=== PATIENT | female | born 1970 | race Hispanic/Latino ===

== ENCOUNTER 2019-09-28 15:26 | Emergency (ER) | payer SELFPAY ==
[2019-09-28] MEDS ORDERED: LIDOCAINE 1% MPF 5 ML VIAL ONE (17:42)
[2019-09-28] MEDS ORDERED: MORPHINE 4 MG/ML SYR ONE (17:43)
[2019-09-28] MEDS ORDERED: ONDANSETRON 4 MG/2 ML VIAL ONE (17:43)
[2019-09-28] MEDS ORDERED: NA CHLORIDE 0.9% 1,000 ML ONE (17:43)
[2019-09-28 18:03] LABS: Absolute Lymphocytes (CBC) 2.6 K/uL (0.7-4.9); Basophils % 0.7 % (0-1.3); Hematocrit 39.6 % (36.0-45.0); Lymphocytes % 27.9 % (15.3-44.8); MPV 9.2 fL (7.6-11.3); RBC Red Blood Cell Count 4.67 M/uL (3.86-4.86)
[2019-09-28 18:09] LABS: BUN Blood Urea Nitrogen 12 mg/dL (7-18); Bicarbonate 24 mmol/L (21-32); Glucose Level 350 mg/dL (74-106); Potassium 3.8 mmol/L (3.5-5.1); Sodium Level 135 mmol/L (136-145)
--- NOTE | 2019-09-28 19:18 | EDPHYS ---
Physician Documentation [facility] Name: Azra Scott Age: 48 yrs Sex: Female : 1970 Arrival Date: 09/28/2019 Time: 15:30 Bed 17 Private MD: ED Physician Colton Medina HPI: 09/27 17:24 This 48 yrs old Female presents to ER via Ambulatory with complaints of Boil. jmm 17:24 The patient presents with an abscess of the abdomen. Onset: The symptoms/episode jmm began/occurred gradually, 4 day(s) ago. Possible cause(s): unknown. Associated signs and symptoms: Pertinent positives: discharge, drainage, erythema, swelling. Modifying factors: the symptoms are alleviated by nothing, the symptoms are aggravated by nothing. Patient states symptoms began this past Sunday. Denies any chonic medical conditions. . [employer] SCOUT: 16:06 LMP 09/27/2019 jl7 Historical: - Allergies: 16:06 No Known Allergies; jl7 - Home Meds: 16:06 None [Active]; jl7 - PMHx: 16:06 None; jl7 - PSHx: 16:06 ; jl7 - Immunization history:: Adult Immunizations not up to date. - Social history:: Smoking status: Patient denies any tobacco usage or history of. ROS: 17:24 Constitutional: Negative for fever, chills, and weight loss, Cardiovascular: Negative jmm for chest pain, palpitations, and edema, Respiratory: Negative for shortness of breath, cough, wheezing, and pleuritic chest pain. 17:24 Skin: Positive for abscess. 17:24 All other systems are negative. Exam: 17:24 Constitutional: This is a well developed, well nourished patient who is awake, alert, jmm and in no acute distress. Head/Face: atraumatic. Eyes: EOMI, no conjunctival erythema appreciated ENT: Moist Mucus Membranes Neck: Trachea midline, Supple Chest/axilla: Normal chest wall appearance and motion. Cardiovascular: Regular rate and rhythm. No edema appreciated Respiratory: Normal respirations, no respiratory distress appreciated 17:24 Back: Normal ROM Skin: General appearance color normal MS/ Extremity: Moves all extremities, no obvious deformities appreciated, no edema noted to the lower extremities Neuro: Awake and alert, normal gait Psych: Behavior is normal, Mood is normal, Patient is cooperative and pleasant 17:24 Abdomen/GI: abscess with drainage and induration noted to the lower abdomen. Vital Signs: 15:58 BP 213 / 94; Pulse 84; Resp 17 S; Temp 98.1(O); Pulse Ox 99% on R/A; Weight 97.07 kg jl7 (R); Height 5 ft. 4 in. (162.56 cm) (R); Pain 5/10; 17:10 BP 192 / 79; Pulse 80; Resp 16 S; Pulse Ox 100% on R/A; Pain 5/10; ca1 18:06 BP 165 / 69; Pulse 71; Resp 15 S; Pulse Ox 99% ; ca1 18:51 BP 185 / 82; Pulse 72; Resp 16 S; Pulse Ox 100% on R/A; ca1 19:40 BP 154 / 78; Pulse 79; Resp 16; Temp 98.2; Pulse Ox 97% on R/A; Pain 0/10; mt2 15:58 Body Mass Index 36.73 (97.07 kg, 162.56 cm) [facility] Procedures: 19:14 I \T\ D: Incision and drainage was performed for an abscess of the abdomen Prepped with [facility] Betadine, Anesthetized with 5 ml's 1% Lidocaine. Incised with #11 blade. Drained moderate amount purulent fluid. Packed with iodoform gauze, Dressing: sterile 4x4 gauze, the patient tolerated the procedure well. MDM: 16:59 Patient medically screened. [facility] 19:15 Data reviewed: vital signs, nurses notes. Counseling: I had a detailed discussion with richard the patient and/or guardian regarding: the historical points, exam findings, and any diagnostic results supporting the discharge/admit diagnosis, lab results, the need for outpatient follow up, to return to the emergency department if symptoms worsen or persist or if there are any questions or concerns that arise at home. ED course: Patient is alert and non toxic in appearance in the ED. I discussed with the patient her bgl. Patient is most likely type II DM. Patient advised to establish herself with a pcp for further evaluation. Patient is otherwise given strict return precautions. Patient understood and agrees with the plan of care. . 09/27 17:19 Order name: CBC with Diff; Complete Time: 18:10 [facility] 09/27 17:19 Order name: BMP; Complete Time: 18:10 [facility] 09/27 17:19 Order name: Procalcitonin; Complete Time: 18:24 [facility] 09/27 17:19 Order name: Lactate; Complete Time: 18:21 [facility] 09/27 17:19 Order name: Saline Lock; Complete Time: 17:51 jm Administered Medications: 17:45 Drug: NS 0.9% 1000 ml Route: IV; Rate: 1 bolus; Site: left hand; jl7 18:55 Follow up: Response: No adverse reaction; IV Status: Completed infusion; IV Intake: ca1 1000ml 17:46 Drug: Zofran (Ondansetron) 4 mg Route: IVP; Site: left hand; jl7 18:55 Follow up: Response: No adverse reaction; Nausea is decreased ca1 17:48 Drug: morphine 4 mg Route: IVP; Site: left hand; jl7 18:55 Follow up: Response: No adverse reaction; Pain is decreased; RASS: Alert and Calm (0) ca1 19:06 Drug: Lidocaine (1 %) 10 ml {Note: ROMAINE Sanchez.} Volume: 20 ml; Route: Infiltration; ca1 Disposition: 09/28 12:03 Co-signature as Attending Physician, Colton Medina MD I agree with the assessment and tucker plan of care. Disposition: 09/28/19 19:17 Discharged to Home. Impression: Cutaneous abscess of abdominal wall, Hyperglycemia, unspecified, Elevated Blood Pressure. - Condition is Stable. - Discharge Instructions: Skin Abscess, Hyperglycemia, Hypertension, Incision and Drainage, Care After. - Prescriptions for Tylenol- Codeine #3 300-30 mg Oral Tablet - take 1 tablet by ORAL route every 6 hours As needed; 20 tablet. Doxycycline Hyclate 100 mg Oral Tablet - take 1 tablet by ORAL route every 12 hours; 20 tablet. Metformin 500 mg Oral Tablet - take 1 tablet by ORAL route once daily for 7 days Then take 1 tablet with morning meals AND evening meals; 21 tablet. Bactrim DS 800- 160 mg Oral Tablet - take 1 tablet by ORAL route every 12 hours for 10 days; 20 tablet. hydrochlorothiazide 12.5 mg Oral capsule - take 1 capsule by ORAL route once daily; 20 capsule. - Medication Reconciliation Form, Thank You Letter, Antibiotic Education, Prescription Opioid Use form. - Follow up: Private Physician; When: 2 - 3 days; Reason: Recheck today's complaints, Continuance of care, Re-evaluation by your physician. Signatures: Dispatcher [employer] EDColton Muñoz MD MD cha Mickail, Joel, PA PA [facility] Erickson Turner, RN RN jl7 Bia Goyal RN RN ca1 Mary Alice Alvarez RN RN mt2 Corrections: (The following items were deleted from the chart) 09/27 19:18 19:17 09/28/2019 19:17 Discharged to Home. Impression: Cutaneous abscess of abdominal jmm wall. Condition is Stable. Forms are Medication Reconciliation Form, Thank You Letter, Antibiotic Education, Prescription Opioid Use. Follow up: Private Physician; When: 2 - 3 days; Reason: Recheck today's complaints, Continuance of care, Re-evaluation by your physician. [facility] 19:46 19:18 09/28/2019 19:17 Discharged to Home. Impression: Cutaneous abscess of abdominal mt2 wall; Hyperglycemia, unspecified; Elevated Blood Pressure. Condition is Stable. Forms are Medication Reconciliation Form, Thank You Letter, Antibiotic Education, Prescription Opioid Use. Follow up: Private Physician; When: 2 - 3 days; Reason: Recheck today's complaints, Continuance of care, Re-evaluation by your physician. levar
--- NOTE | 2019-09-28 19:18 | ER ---
Nurse's Notes [facility] Name: Azra Scott Age: 48 yrs Sex: Female : 1970 Arrival Date: 09/28/2019 Time: 15:30 Bed 17 Private MD: Diagnosis: Cutaneous abscess of abdominal wall;Hyperglycemia, unspecified;Elevated Blood Pressure Presentation: 09/27 15:58 Chief complaint: Patient's son or daughter states: "We think she got bit by a spider or jl7 something on Sunday and now it's just gotten way bigger." Reports abscess to lower abdomen. Coronavirus screen: Client denies travel out of the [place] in the last 14 days. At this time, the client does not indicate any symptoms associated with coronavirus-19. Ebola Screen: No symptoms or risks identified at this time. Initial Sepsis Screen: Does the patient meet any 2 criteria? No. Patient's initial sepsis screen is negative. Does the patient have a suspected source of infection? No. Patient's initial sepsis screen is negative. Risk Assessment: Do you want to hurt yourself or someone else? Patient reports no desire to harm self or others. Onset of symptoms was September 17, 2019. Care prior to arrival: None. Transition of care: patient was not received from another setting of care. 15:58 Method Of Arrival: Ambulatory [facility] 15:58 Acuity: SHELL 3 jl7 Triage Assessment: 16:06 General: Appears in no apparent distress. uncomfortable, Behavior is calm, cooperative, jl7 appropriate for age. Pain: Complains of pain in lower abdomen Pain currently is 5 out of 10 on a pain scale. Neuro: Level of Consciousness is awake, alert, obeys commands, Oriented to person, place, time, situation. Cardiovascular: Patient's skin is warm and dry. Respiratory: Airway is patent Respiratory effort is even, unlabored, Respiratory pattern is regular, symmetrical. Derm: Skin is pink, warm \\T\\ dry. Abscess located on right lower quadrant has purulent drainage, is red, is raised. [employer]: 16:06 LMP 09/27/2019 jl7 Historical: - Allergies: 16:06 No Known Allergies; jl7 - Home Meds: 16:06 None [Active]; jl7 - PMHx: 16:06 None; jl7 - PSHx: 16:06 ; jl7 - Immunization history:: Adult Immunizations not up to date. - Social history:: Smoking status: Patient denies any tobacco usage or history of. Screenin:13 Abuse screen: Denies threats or abuse. Denies injuries from another. Nutritional jl7 screening: No deficits noted. Tuberculosis screening: No symptoms or risk factors identified. Fall Risk None identified. Assessment: 17:18 General: Appears in no apparent distress. comfortable, Behavior is calm, cooperative, ca1 appropriate for age. Pain: Denies pain. Neuro: Level of Consciousness is awake, alert, obeys commands, Oriented to person, place, time, situation. Derm: Skin is intact, is healthy with good turgor, Skin is pink, warm \\T\\ dry. Abscess located on right lower quadrant is golf ball sized, has purulent drainage, has foul odor, is hot to touch, is red, is raised, was lanced by patient prior to arrival. Musculoskeletal: Circulation, motion, and sensation intact. Capillary refill < 3 seconds. 18:06 Reassessment: Patient appears in no apparent distress at this time. No changes from ca1 previously documented assessment. Patient and/or family updated on plan of care and expected duration. Pain level reassessed. Patient is alert, oriented x 3, equal unlabored respirations, skin warm/dry/pink. 18:51 Reassessment: Patient appears in no apparent distress at this time. Patient and/or ca1 family updated on plan of care and expected duration. Pain level reassessed. Patient is alert, oriented x 3, equal unlabored respirations, skin warm/dry/pink. 19:39 Reassessment: Patient and/or family updated on plan of care and expected duration. Pain mt2 level reassessed. Patient is alert, oriented x 3, equal unlabored respirations, skin warm/dry/pink. Patient denies pain at this time. General: Appears in no apparent distress. comfortable, Behavior is calm, cooperative. Pain: Denies pain. Vital Signs: 15:58 BP 213 / 94; Pulse 84; Resp 17 S; Temp 98.1(O); Pulse Ox 99% on R/A; Weight 97.07 kg jl7 (R); Height 5 ft. 4 in. (162.56 cm) (R); Pain 5/10; 17:10 BP 192 / 79; Pulse 80; Resp 16 S; Pulse Ox 100% on R/A; Pain 5/10; ca1 18:06 BP 165 / 69; Pulse 71; Resp 15 S; Pulse Ox 99% ; ca1 18:51 BP 185 / 82; Pulse 72; Resp 16 S; Pulse Ox 100% on R/A; ca1 19:40 BP 154 / 78; Pulse 79; Resp 16; Temp 98.2; Pulse Ox 97% on R/A; Pain 0/10; mt2 15:58 Body Mass Index 36.73 (97.07 kg, 162.56 cm) jl7 ED Course: 15:30 Patient arrived in ED. ag5 16:05 Triage completed. jl7 16:06 Arm band placed on right wrist. jl7 16:08 Patient placed in waiting room, Patient notified of wait time. [facility] 16:56 Daniel Meza PA is PHCP. [facility] 16:56 Colton Medina MD is Attending Physician. [facility] 17:10 Bia Goyal RN is Primary Nurse. ca1 17:13 Patient has correct armband on for positive identification. Placed in gown. Bed in low jl7 position. Call light in reach. Side rails up X 1. Pulse ox on. NIBP on. Warm blanket given. 17:35 Missed attempt(s): 22 gauge in right hand. Bleeding controlled, band aid applied, ca1 catheter tip intact. 17:51 Initial lab(s) drawn, by ak, sent to lab. Inserted saline lock: 20 gauge in left hand, jl7 using aseptic technique. Blood collected. 19:07 Assist provider with I \\T\\ D: of an abscess on right LQ abdomen Set up I\\T\\D tray. ca 1 Performed by Daniel GAVIN Wound packed. 4X4s, Dressing with 4X4s, Patient tolerated well. 19:40 IV discontinued, intact, bleeding controlled, No redness/swelling at site. Pressure mt2 dressing applied. Administered Medications: 17:45 Drug: NS 0.9% 1000 ml Route: IV; Rate: 1 bolus; Site: left hand; [facility] 18:55 Follow up: Response: No adverse reaction; IV Status: Completed infusion; IV Intake: ca1 1000ml 17:46 Drug: Zofran (Ondansetron) 4 mg Route: IVP; Site: left hand; jl7 18:55 Follow up: Response: No adverse reaction; Nausea is decreased ca1 17:48 Drug: morphine 4 mg Route: IVP; Site: left hand; jl7 18:55 Follow up: Response: No adverse reaction; Pain is decreased; RASS: Alert and Calm (0) ca1 19:06 Drug: Lidocaine (1 %) 10 ml {Note: ROMAINE Sanchez.} Volume: 20 ml; Route: Infiltration; ca1 Intake: 18:55 IV: 1000ml; Total: 1000ml. ca1 Outcome: 19:17 Discharge ordered by . richard 19:40 Discharged to home ambulatory. mt2 19:40 Condition: good 19:40 Discharge instructions given to patient, Instructed on discharge instructions, follow up and referral plans. medication usage, wound care, Demonstrated understanding of instructions, follow-up care, medications, wound care, Prescriptions given X 4. 19:46 Patient left the ED. mt2 Signatures: Daniel Meza PA PA jmm Leal, Jahala, RN RN jl7 Bia Goyal RN RN [facility] Blaine Hart 5 Mary Alice Alvarez RN RN mt2 Corrections: (The following items were deleted from the chart) 18:06 17:18 Derm: Skin is intact, is healthy with good turgor, Skin is pink, warm \\T\\ dry. ca1 Abscess located on right lower quadrant is quarter sized, has purulent drainage, has foul odor, is hot to touch, is red, is raised, was lanced by patient prior to arrival, ca1
== END 2019-09-28 19:46 | disposition home or self-care (01) ==
LOC: ER 15:26
PROC: 0J980ZZ Drainage of Abdomen Subcutaneous Tissue and Fascia, Open Approach (ICD-10-PCS; principal; 2019-09-28)
DX: L02.211 Cutaneous abscess of abdominal wall (principal); R73.9 Hyperglycemia, unspecified; I10 Essential (primary) hypertension
CPT/HCPCS: 36415; 80048; 83605; 84145; 85025; 96361; 96374; 96375; 99284; J2405; J7030

== ENCOUNTER 2020-09-30 13:19 | Inpatient (IN) | payer OTHER, SELFPAY ==
--- OUTSIDE RECORDS SUMMARY | 2020-09-30 13:22 | XMS REPORT | Continuity of Care Document ---
:1970 Author Organization [facility] t Address [address] [place] [address] Dr. M[address]aniels[address] [place] [id number] Care Team Providers Name Role Phone Chip LEE Attending Clinician Unavailable Problems This patient has no known problems. Allergies, Adverse Reactions, Alerts This patient has no known allergies or adverse reactions. Medications This patient has no known medications. Procedures This patient has no known procedures. Encounters Start End Encounter Admission Attending Care Care Encounter Source Date/Time Date/Time Type Type Clinicians Facility Department ID 2020-05-24 2020-05-24 Outpatient ZENA LEE [facility] [id number] Access 11:00:00 11:00:00 [facility] Results This patient has no known results.
[2020-09-30] MEDS ORDERED: ASPIRIN 81 MG CHEWABLE TABLET ONE (14:29)
[2020-09-30] MEDS ORDERED: NA CHLORIDE 0.9% 1,000 ML ONE (14:30)
[2020-09-30 14:48] LABS: Absolute Lymphocytes (CBC) 1.2 K/uL (0.7-4.9); Basophils % 0.2 % (0-1.3)
[2020-09-30] MEDS ORDERED: IPRATROPIUM BROM 0.5MG/2.5ML ONE (14:51)
[2020-09-30] MEDS ORDERED: NA CHLORIDE 0.9% 250 ML ONE (14:51)
[2020-09-30] MEDS ORDERED: LEVALBUTEROL 1.25 MG/3 ML NEB ONE (14:51)
[2020-09-30] MEDS ORDERED: AZITHROMYCIN 500 MG INJ IVPB ONE (14:51)
[2020-09-30] MEDS ORDERED: METHYLPREDNISOLONE 125 MG INJ ONE (14:51)
[2020-09-30 14:52] LABS: Hematocrit 38.5 % (36.0-45.0); Lymphocytes % 19.1 % (15.3-44.8); MPV 9.1 fL (7.6-11.3); RBC Red Blood Cell Count 4.54 M/uL (3.86-4.86)
[2020-09-30] MEDS ORDERED: CEFTRIAXONE/SWI 1gm 1 GM/10 ML SYR ONE (14:52)
[2020-09-30] MEDS ORDERED: FAMOTIDINE 20 MG/2 ML VIAL IV ONE (14:52)
[2020-09-30 15:03] LABS: Protime INR 1.23
[2020-09-30 15:19] LABS: ALT/SGPT 39 U/L (12-78); Albumin 2.9 g/dL (3.4-5.0); Alkaline Phosphatase 96 U/L (45-117); BUN Blood Urea Nitrogen 14 mg/dL (7-18); Bicarbonate 25 mmol/L (21-32); Bilirubin Direct 0.1 mg/dL (0-0.2); Bilirubin Total 0.4 mg/dL (0.2-1.0); Glucose Level 360 mg/dL (74-106); Lipase 135 U/L (73-393); NT PRO-BNP 121 pg/mL (<125); Protein, Total 8.9 g/dL (6.4-8.2); Sodium Level 133 mmol/L (136-145); Troponin (Emerg Dept Use Only) < 0.02 ng/mL (0.0-0.045)
--- NOTE | 2020-09-30 15:20 | RAD REPORT ---
EXAM DESCRIPTION: RAD - Chest Single View - 09/30/2020 3:10 pm CLINICAL HISTORY: CHEST PAIN COMPARISON: No comparisons FINDINGS: Moderate patchy bilateral airspace disease. The heart size is within normal limits.No acut e osseous abnormality. No significant pleural effusions or pneumothorax. IMPRESSION: Moderate patchy bilateral airspace disease concerning for multifocal pneumonia, includin g Covid-19.
[2020-09-30 15:23] LABS: AST/SGOT 43 U/L (15-37); Potassium 4.4 mmol/L (3.5-5.1)
--- NOTE | 2020-09-30 15:50 | ER ---
Nurse's Notes [facility] Name: Azra Scott Age: 49 yrs Sex: Female : 1970 Arrival Date: 09/30/2020 Time: 13:20 Bed 15 Private MD: Diagnosis: Hypoxemia;Dyspnea;Coronavirus infection, unspecified;Pneumonia due to SARS-associated coronavirus;Type 2 diabetes mellitus with hyperglycemia Presentation: 09/30 13:24 Risk Assessment: Do you want to hurt yourself or someone else? Patient reports no sv desire to harm self or others. 13:28 Chief complaint: Patient states: chest pain with SOB, cough x 2 days. Coronavirus sv screen: Client denies travel out of the [place] in the last 14 days. Ebola Screen: No symptoms or risks identified at this time. Onset of symptoms was September 28, 2020. 13:28 Method Of Arrival: Ambulatory sv 13:28 Acuity: SHELL 2 sv 13:30 Initial Sepsis Screen: Does the patient meet any 2 criteria? RR > 20 per min. HR > 90 sv bpm. Yes Does the patient have a suspected source of infection? No. Patient's initial sepsis screen is negative. Triage Assessment: 13:27 General: Appears in no apparent distress. comfortable, Behavior is calm, cooperative, sv appropriate for age. Neuro: Level of Consciousness is awake, alert, obeys commands, Gait is steady. Respiratory: Respiratory effort is even, unlabored. Historical: - Allergies: 13:29 No Known Allergies; sv - PMHx: 13:29 None; sv - PSHx: 13:29 None; sv - Immunization history:: Client reports having NOT received the Covid vaccine. - Social history:: Smoking status: Patient denies any tobacco usage or history of. - Family history:: not pertinent. Screenin:18 Abuse screen: Denies threats or abuse. Denies injuries from another. Nutritional ld1 screening: No deficits noted. Tuberculosis screening: No symptoms or risk factors identified. Fall Risk None identified. Assessment: 14:18 General: Appears in no apparent distress. comfortable, Behavior is calm, cooperative, ld1 appropriate for age. Pain: Complains of pain in chest Pain does not radiate. Pain currently is 7 out of 10 on a pain scale. Quality of pain is described as throbbing, Pain began gradually, Is intermittent. Neuro: Level of Consciousness is awake, alert, obeys commands, Oriented to person, place, time, situation, Appropriate for age. Cardiovascular: Capillary refill < 3 seconds Patient's skin is warm and dry. Rhythm is regular. Respiratory: Reports cough that is Airway is patent Respiratory effort is even, unlabored, Respiratory pattern is regular, symmetrical. GI: Abdomen is flat, non-distended. : No signs and/or symptoms were reported regarding the genitourinary system. EENT: No signs and/or symptoms were reported regarding the EENT system. Derm: No signs and/or symptoms reported regarding the dermatologic system. Musculoskeletal: No signs and/or symptoms reported regarding the musculoskeletal system. 14:57 Reassessment: Patient appears in no apparent distress at this time. Patient is alert, ld1 oriented x 3, equal unlabored respirations, skin warm/dry/pink. Back from MRI. Denies concerns at this time. No signs of distress. Vital Signs: 13:30 BP 167 / 97; Pulse 98; Resp 22; Temp 97; Pulse Ox 92% on R/A; Weight 95.25 kg; Height 5 sv ft. 5 in. (165.10 cm); Pain 7/10; 14:18 BP 155 / 76; Pulse 101; Resp 22; Pulse Ox 91% on R/A; ld1 14:28 BP 136 / 75; Pulse 84; Resp 16; Pulse Ox 96% on R/A; ld1 14:57 BP 118 / 82; Pulse 64; Resp 17; Pulse Ox 100% on R/A; ld1 13:30 Body Mass Index 34.94 (95.25 kg, 165.10 cm) sv ED Course: 13:20 Patient arrived in ED. am2 13:24 Arm band placed on. sv 13:29 Triage completed. sv 13:45 Colton Medina MD is Attending Physician. [facility] 14:18 Patient has correct armband on for positive identification. Placed in gown. Call light ld1 in reach. Side rails up X2. quality assurance monitor final on. Pulse ox on. NIBP on. Door closed. Noise minimized. Warm blanket given. 14:18 No provider procedures requiring assistance completed. Missed attempt(s): 20 gauge in ld1 right hand. Patient maintains SpO2 saturation greater than 95% on room air. 15:05 Notified ED physician of a critical lab result(s). D-Dimer 1148. jl7 15:10 XRAY Chest (1 view) In Process Unspecified. EDMS 15:43 CT Chest For PE Angio In Process Unspecified. EDMS 15:48 Erum Jj MD is Hospitalizing Provider. [facility] 17:39 Valerie Steward, RN is Primary Nurse. ld1 10/01 03:53 Inserted saline lock: 20 gauge in right antecubital area, using aseptic technique. lh3 Administered Medications: 09/30 14:09 Drug: Aspirin Chewable Tablet 324 mg Route: PO; ld1 14:21 Follow up: Response: No adverse reaction ld1 14:39 Drug: Zithromax (azithromycin) 500 mg Route: IVPB; Infused Over: 1 hrs; Site: right ld1 antecubital; 15:57 Follow up: Response: No adverse reaction; IV Status: Completed infusion; IV Intake: ld1 250ml 14:39 Drug: Rocephin - (cefTRIAXone) 1 grams Route: IVPB; Infused Over: 30 mins; Site: right ld1 antecubital; 15:57 Follow up: Response: No adverse reaction ld1 14:39 Drug: Pepcid (famotidine) 20 mg Route: IVP; Site: right antecubital; ld1 15:57 Follow up: Response: No adverse reaction ld1 14:40 Drug: NS 0.9% 1000 ml Route: IV; Rate: 125 ml/hr; Site: right antecubital; ld1 15:44 Follow up: Response: No adverse reaction; IV Status: Completed infusion; IV Intake: ld1 1000ml 14:40 Drug: SOLU-Medrol (methylPrednisoLONE) 125 mg Route: IVP; Site: right antecubital; ld1 15:57 Follow up: Response: No adverse reaction ld1 14:40 Drug: Xopenex (levalbuterol) 3.75 mg Route: Inhalation; ld1 15:57 Follow up: Response: No adverse reaction ld1 14:40 Drug: AtroVENT (ipratropium) Aerosol 0.5 mg Route: Inhalation; ld1 15:57 Follow up: Response: No adverse reaction ld1 15:44 Drug: NS 0.9% 500 ml Route: IV; Rate: bolus; Site: right antecubital; ld1 15:44 Drug: NS 0.9% 1000 ml Route: IV; Rate: 125 ml/hr; Site: right antecubital; ld1 15:55 Drug: Insulin Regular Human 8 units {Co-Signature: dorina (Alesia Vega RN).} Route: IVP; ld1 Site: right antecubital; 15:56 Follow up: Response: No adverse reaction ld1 15:56 Drug: LanTUS (insulin glargine) 30 units Route: Sub-Q; Site: left upper arm; ld1 15:56 Follow up: Response: No adverse reaction ld1 Intake: 15:44 IV: 1000ml; Total: 1000ml. ld1 15:57 IV: 250ml; Total: 1250ml. ld1 Outcome: 15:49 Decision to Hospitalize by Provider. tucker 19:00 Admitted to ER Hold. Please see [facility] for further documentation. [facility] 19:00 Condition: improved 19:00 Instructed on the need for admit. 10/01 08:55 Patient left the ED. aj2 Signatures: Dispatcher [employer] EDRylie Castillo, RN RN Colton Medina MD MD cha Leal, Jahala, RN RN jl7 Anh Bernard amValerie Almodovar RN RN ld1 Chica Patrick RN RN 3 Yovani Mendes2 Sreedhar Burton, RN RN ch5 Alesia cam Corrections: (The following items were deleted from the chart) 09/30 13:26 13:24 Chief complaint: sv sv 13:33 13:28 Acuity: SHELL 3 sv sv 13:33 13:30 95.25 kg; Height 5 ft. 5 in.; BMI: 34.9; sv sv
--- NOTE | 2020-09-30 15:50 | EDPHYS ---
Physician Documentation [facility] Name: Azra Scott Age: 49 yrs Sex: Female : 1970 Arrival Date: 09/30/2020 Time: 13:20 Bed 15 Private MD: ED Physician Colton Medina HPI: 09/30 14:27 This 49 yrs old Female presents to ER via Ambulatory with complaints of Chest tucker Pain. 14:27 The patient or guardian reports chest pain that is located primarily in the chest tucker diffusely. Onset: 5 day(s) ago. The pain does not radiate. Associated signs and symptoms: Pertinent positives: cough. The chest pain is described as sharp. Duration: The patient or guardian reports a single episode, that is still ongoing, and worsening. Modifying factors: The symptoms are alleviated by nothing. the symptoms are aggravated by deep breath. Severity of pain: At its worst the pain was mild in the emergency department the pain is unchanged. The patient has not experienced similar symptoms in the past. Historical: - Allergies: 13:29 No Known Allergies; sv - PMHx: 13:29 None; sv - PSHx: 13:29 None; sv - Immunization history:: Client reports having NOT received the Covid vaccine. - Social history:: Smoking status: Patient denies any tobacco usage or history of. - Family history:: not pertinent. ROS: 14:27 Constitutional: Negative for fever, chills, and weight loss, Eyes: Negative for injury, tucker pain, redness, and discharge, ENT: Negative for injury, pain, and discharge, Neck: Negative for injury, pain, and swelling, Abdomen/GI: Negative for abdominal pain, nausea, vomiting, diarrhea, and constipation, Back: Negative for injury and pain, : Negative for injury, bleeding, discharge, and swelling, MS/Extremity: Negative for injury and deformity, Skin: Negative for injury, rash, and discoloration, Neuro: Negative for headache, weakness, numbness, tingling, and seizure, Psych: Negative for depression, anxiety, suicide ideation, homicidal ideation, and hallucinations, Allergy/Immunology: Negative for hives, rash, and allergies, Endocrine: Negative for neck swelling, polydipsia, polyuria, polyphagia, and marked weight changes, Hematologic/Lymphatic: Negative for swollen nodes, abnormal bleeding, and unusual bruising. 14:27 Cardiovascular: Positive for chest pain, with cough. 14:27 Respiratory: Positive for cough, shortness of breath, wheezing, expiratory. Exam: 14:27 Constitutional: This is a well developed, well nourished patient who is awake, alert, tucker and in no acute distress. Head/Face: Normocephalic, atraumatic. Eyes: Pupils equal round and reactive to light, extra-ocular motions intact. Lids and lashes normal. Conjunctiva and sclera are non-icteric and not injected. Cornea within normal limits. Periorbital areas with no swelling, redness, or edema. ENT: Nares patent. No nasal discharge, no septal abnormalities noted. Tympanic membranes are normal and external auditory canals are clear. Oropharynx with no redness, swelling, or masses, exudates, or evidence of obstruction, uvula midline. Mucous membranes moist. Neck: Trachea midline, no thyromegaly or masses palpated, and no cervical lymphadenopathy. Supple, full range of motion without nuchal rigidity, or vertebral point tenderness. No Meningismus. Chest/axilla: Normal chest wall appearance and motion. Nontender with no deformity. No lesions are appreciated. Cardiovascular: Regular rate and rhythm with a normal S1 and S2. No gallops, murmurs, or rubs. Normal PMI, no JVD. No pulse deficits. Abdomen/GI: Soft, non-tender, with normal bowel sounds. No distension or tympany. No guarding or rebound. No evidence of tenderness throughout. Back: No spinal tenderness. No costovertebral tenderness. Full range of motion. Skin: Warm, dry with normal turgor. Normal color with no rashes, no lesions, and no evidence of cellulitis. MS/ Extremity: Pulses equal, no cyanosis. Neurovascular intact. Full, normal range of motion. Neuro: Awake and alert, GCS 15, oriented to person, place, time, and situation. Cranial nerves II-XII grossly intact. Motor strength 5/5 in all extremities. Sensory grossly intact. Cerebellar exam normal. Normal gait. Psych: Awake, alert, with orientation to person, place and time. Behavior, mood, and affect are within normal limits. 14:27 Respiratory: mild respiratory distress is noted, Respirations: labored breathing, that is mild, Breath sounds: bronchial sounds, that are moderate, are heard diffusely, decreased breath sounds, that are mild, are located in both bases, rhonchi, that are mild, are scattered, stridor, is not appreciated, wheezing: expiratory is heard diffusely, Respiratory rate: 22 14:32 ECG was reviewed by the Attending Physician. [facility] Vital Signs: 13:30 BP 167 / 97; Pulse 98; Resp 22; Temp 97; Pulse Ox 92% on R/A; Weight 95.25 kg; Height 5 sv ft. 5 in. (165.10 cm); Pain 7/10; 14:18 BP 155 / 76; Pulse 101; Resp 22; Pulse Ox 91% on R/A; ld1 14:28 BP 136 / 75; Pulse 84; Resp 16; Pulse Ox 96% on R/A; ld1 14:57 BP 118 / 82; Pulse 64; Resp 17; Pulse Ox 100% on R/A; ld1 13:30 Body Mass Index 34.94 (95.25 kg, 165.10 cm) sv MDM: 13:45 Patient medically screened. tucker 14:30 Differential diagnosis: abnormal EKG, anxiety, coronary artery disease pancreatitis, tucker pneumonia, stable angina, unstable angina. HEART Score: History: Slightly Suspicious (0), ECG: Normal (0), Age: > 45 and < 65 years (1), Risk Factors: 1 or 2 risk factors (1), [Hypertension] [+ Family HX] Troponin: < or = 1 x Normal Limit (0). The patient was given aspirin in the Emergency Department. The patient's deep vein thrombosis risk score was calculated as follows: Total Score: 0. This patient was found to be at low risk for a deep vein thrombosis by using the Well's assessment criteria. The patient's pulmonary embolism risk score was calculated as follows: Total Score: 0-2 points. This patient was found to be at low risk for a pulmonary embolism by using the Well's assessment criteria. SERGIO Risk Score: TOTAL SCORE = 0. Data reviewed: vital signs, nurses notes, lab test result(s), EKG, radiologic studies, CT scan, plain films. Data interpreted: library monitor: rate is 101 beats/min, rhythm is regular, Pulse oximetry: on room air is 91 %. Test interpretation: by ED physician or midlevel provider: ECG, plain radiologic studies. Counseling: I had a detailed discussion with the patient and/or guardian regarding: the historical points, exam findings, and any diagnostic results supporting the discharge/admit diagnosis, lab results, radiology results, the need for further work-up and treatment in the hospital. 09/30 13:57 Order name: Basic Metabolic Panel; Complete Time: 15:31 [facility] 09/30 13:57 Order name: CBC with Diff; Complete Time: 15:31 [facility] 09/30 13:57 Order name: LFT's; Complete Time: 15:31 [facility] 09/30 13:57 Order name: Magnesium; Complete Time: 15:31 [facility] 09/30 13:57 Order name: NT PRO-BNP; Complete Time: 15:31 [facility] 09/30 13:57 Order name: PT-INR; Complete Time: 15:31 [facility] 09/30 13:57 Order name: Troponin (emerg Dept Use Only); Complete Time: 15:31 [facility] 09/30 13:57 Order name: D-Dimer; Complete Time: 15:31 [facility] 09/30 13:57 Order name: Lipase; Complete Time: 15:31 [facility] 09/30 14:23 Order name: Blood Culture Adult (2) [facility] 09/30 14:24 Order name: Blood Culture [facility] 09/30 15:32 Order name: Ferritin [facility] 09/30 15:32 Order name: CRP [facility] 09/30 13:57 Order name: XRAY Chest (1 view); Complete Time: 15:31 [facility] 09/30 14:27 Order name: CT Chest For PE Angio [facility] 09/30 16:13 Order name: SARS-COV-2 RT PCR [facility] 10/01 04:41 Order name: CBC with Automated Diff [facility] 10/01 04:59 Order name: Basic Metabolic Panel [facility] 10/01 04:59 Order name: Lipid Profile [facility] 10/01 04:59 Order name: C-Reactive Protein [facility] 10/01 04:59 Order name: T4 Free [facility] 10/01 04:59 Order name: Thyroid Stimulating Hormone [facility] 10/01 04:59 Order name: Ferritin [facility] 10/01 05:04 Order name: Procalcitonin [facility] 10/01 05:25 Order name: Hemoglobin A1c [facility] 09/30 13:57 Order name: EKG; Complete Time: 13:58 [facility] 09/30 13:57 Order name: Cardiac monitoring; Complete Time: 14:09 [facility] 09/30 13:57 Order name: EKG - Nurse/Tech; Complete Time: 14: [facility] 09/30 13:57 Order name: IV Saline Lock; Complete Time: 14:40 [facility] 09/30 13:57 Order name: Labs collected and sent; Complete Time: 14: [facility] 09/30 13:57 Order name: O2 Per Protocol; Complete Time: 14: [facility] 09/30 13:57 Order name: O2 Sat Monitoring; Complete Time: 14: [facility] 09/30 16:48 Order name: CONS Physician Consult EDMS EC:32 Rate is 97 beats/min. Rhythm is regular. QRS Treichlers is Normal. [place] interval is normal. QRS tucker interval is normal. QT interval is normal. No Q waves. T waves are Normal. No ST changes noted. Clinical impression: Normal ECG and No evidence of ischemia. Interpreted by me. Reviewed by me. Administered Medications: 14:09 Drug: Aspirin Chewable Tablet 324 mg Route: PO; ld1 14:21 Follow up: Response: No adverse reaction ld1 14:39 Drug: Zithromax (azithromycin) 500 mg Route: IVPB; Infused Over: 1 hrs; Site: right ld1 antecubital; 15:57 Follow up: Response: No adverse reaction; IV Status: Completed infusion; IV Intake: ld1 250ml 14:39 Drug: Rocephin - (cefTRIAXone) 1 grams Route: IVPB; Infused Over: 30 mins; Site: right ld1 antecubital; 15:57 Follow up: Response: No adverse reaction ld1 14:39 Drug: Pepcid (famotidine) 20 mg Route: IVP; Site: right antecubital; ld1 15:57 Follow up: Response: No adverse reaction ld1 14:40 Drug: NS 0.9% 1000 ml Route: IV; Rate: 125 ml/hr; Site: right antecubital; ld1 15:44 Follow up: Response: No adverse reaction; IV Status: Completed infusion; IV Intake: ld1 1000ml 14:40 Drug: SOLU-Medrol (methylPrednisoLONE) 125 mg Route: IVP; Site: right antecubital; ld1 15:57 Follow up: Response: No adverse reaction ld1 14:40 Drug: Xopenex (levalbuterol) 3.75 mg Route: Inhalation; ld1 15:57 Follow up: Response: No adverse reaction ld1 14:40 Drug: AtroVENT (ipratropium) Aerosol 0.5 mg Route: Inhalation; ld1 15:57 Follow up: Response: No adverse reaction ld1 15:44 Drug: NS 0.9% 500 ml Route: IV; Rate: bolus; Site: right antecubital; ld1 15:44 Drug: NS 0.9% 1000 ml Route: IV; Rate: 125 ml/hr; Site: right antecubital; ld1 15:55 Drug: Insulin Regular Human 8 units {Co-Signature: zb (Alesia Vega RN).} Route: IVP; ld1 Site: right antecubital; 15:56 Follow up: Response: No adverse reaction ld1 15:56 Drug: LanTUS (insulin glargine) 30 units Route: Sub-Q; Site: left upper arm; ld1 15:56 Follow up: Response: No adverse reaction ld1 Disposition Summary: 09/30/20 15:49 Hospitalization Ordered Hospitalization Status: Inpatient Admission tucker Provider: Erum Jj cha Condition: Fair tucker Problem: new tucker Symptoms: have improved tucker Bed/Room Type: Standard tucker Location: Telemetry/MedSurg (Inpatient)(10/01/20 06:35) tl1 Room Assignment: 425(10/01/20 06:35) tl1 Diagnosis - Hypoxemia tucker - Dyspnea tucker - Coronavirus infection, unspecified tucker - Pneumonia due to SARS-associated coronavirus tucker - Type 2 diabetes mellitus with hyperglycemia tucker Forms: - Medication Reconciliation Form tucker - SBAR form tucker Signatures: Dispatcher [employer] EDRylie Castillo RN RN sv Anderson, Corey, MD MD cha Calderon, Audri RN RN aa5 Meagan Arango RN RN tl1 Valerie Steward RN RN ld1 Alesia cam Corrections: (The following items were deleted from the chart) 14:58 14:24 CORONAVIRUS+.SANDHYAZ ordered. EDIA EDIA 17:46 15:49 Telemetry/MedSurg (Inpatient) tucker aa5 17:46 15:49 tucker aa5 10/01 06:35 09/30 17:46 [facility] ER HOLD aa5 tl1 10/01 06:35 08/26 17:46 ERHOLD- aa5 tl1
--- NOTE | 2020-09-30 15:57 | RAD REPORT ---
EXAM DESCRIPTION: CT - Chest For Pe Angio - 09/30/2020 3:43 pm CLINICAL HISTORY: Chest pain;Dyspnea COMPARISON: No comparisons FINDINGS: Chest Wall: No suspicious thyroid nodules or pathologic lymphadenopathy. Lungs: Moderate to severe bilateral ground-glass and consolidative airspace disease. Pleura: No significant effusions or pneumothorax. Mediastinum/oliver: No pathologic lymphadenopathy. Pulmonary arteries/Aorta: No filling defect identified. No aortic aneurysm. Heart: No significant pericardial effusion. Normal heart size. Upper abdomen: No acute abnormality. Bones: No acute abnormality. IMPRESSION: Negative for pulmonary embolism. Moderate to severe bilateral airspace disease consisten t with multifocal pneumonia, presumably Covid-19.
[2020-09-30] MEDS ORDERED: NA CHLORIDE 0.9% 2,000 ML ONE (16:02)
[2020-09-30] MEDS ORDERED: INSULIN GLARGINE 100 UNITS/ML SQ ONE (16:11)
[2020-09-30] MEDS ORDERED: INSULIN -REGULAR HUMAN 50 UNIT/0.5 ML ML ONE (16:12)
[2020-09-30] MEDS: ASCORBIC ACID 500 MG TABLET PO SCH ×2 (17:00→21:00)
--- NOTE | 2020-09-30 18:54 | P.HP ---
Certification for Inpatient Patient admitted to: Inpatient Patient will require the following post-hospital care: None Practitioner: I am a practitioner with admitting privileges, knowledge of patient current condition, hospital course, and medical plan of care. Services: Services provided to patient in accordance with Admission requirements found in Title 42 Section 412.3 of the Code of Federal Regulations Patient History Date of Service: 09/30/20 Primary Care Provider: none Reason for admission: covid pneumonia History of Present Illness: This is a 49 y/o F with no prior medical history who presents today with SOB and cough x 3 days. She denies any nausea, vomiting, diarrhea, or fever. She denies any abdominal pain. She denies any recent sick contacts. Found to be covid+ in ER. She did not get her covid vaccine. CXR: FINDINGS: Moderate patchy bilateral airspace disease. The heart size is within normal limits.No acute osseous abnormality. No significant pleural effusions or pneumothorax. IMPRESSION: Moderate patchy bilateral airspace disease concerning for multifocal pneumonia, including Covid-19. CTA: IMPRESSION: Negative for pulmonary embolism. Moderate to severe bilateral airspace disease consistent with multifocal pneumonia, presumably Covid-19. Allergies No Known Allergies Allergy (Unverified 09/30/20 19:04) - Past Medical/Surgical History Past Medical History: Patient denies medical history -: Psychosocial/ Personal History: lives with and kids - Social History Smoking Status: Never smoker Alcohol use: No CD- Drugs: No Caffeine use: No Review of Systems 10-point ROS is otherwise unremarkable Physical Examination - Physical Exam General: Alert, Oriented x3, Cooperative HEENT: Atraumatic, Mucous membr. moist/pink, EOMI Neck: Supple Respiratory: Diminished, Crackles/rales, Other (tachypneic) Cardiovascular: No edema, Normal S1 S2, Other (mildly tachycardic) Capillary refill: <2 Seconds Gastrointestinal: Normal bowel sounds, Soft and benign, No tenderness Musculoskeletal: No clubbing, No contractures Integumentary: No rashes, No breakdown Neurological: Normal speech, Normal tone, Normal affect Lymphatics: No axilla or inguinal lymphadenopathy - Studies Laboratory Data (last 24 hrs) 09/30/20 14:28: PT 14.2 H, INR 1.23 09/30/20 14:28: WBC 6.50, Hgb 13.1, Hct 38.5, Plt Count 233 09/30/20 14:28: Sodium 133 L, Potassium 4.4, BUN 14, Creatinine 0.68, Glucose 360 H, Magnesium 2.0, Total Bilirubin 0.4, AST 43 H, ALT 39, Alkaline Phosphatase 96, Lipase 135 Assessment and Plan - Plan IV steroids vitamin supplementation pulmonology consulted trend inflammatory markers wean oxygen as tolerated Hgb A1c ordered DVT prophylaxis-lovenox will consult respiratory and social security specialist to d/c pt with home oxygen Discharge Plan: Home Plan to discharge in: Greater than 2 days - Advance Directives Does patient have a Living Will: No Does patient have a Durable POA for Healthcare: No - Code Status/Comfort Care Code Status Assessed: Yes (full) Time Spent Managing Pts Care (In Minutes): 70
[2020-09-30 18:59] LABS: Ferritin 639.4 ng/mL (8-388)
[2020-09-30] MEDS ORDERED: ONDANSETRON 4 MG/2 ML VIAL IV PRN (19:56)
[2020-09-30] MEDS: FAMOTIDINE 20 MG TAB PO SCH (21:00)
[2020-09-30] MEDS: MELATONIN 5 MG TABLET PO SCH (21:00)
[2020-09-30] MEDS: THIAMINE HCL 100 MG TABLET PO SCH (21:00)
[2020-09-30] MEDS ORDERED: METHYLPREDNISOLONE 125 MG INJ IV SCH (21:00)
[2020-09-30] MEDS ORDERED: METHYLPRED NA SUC 80 MG in NA CHLORIDE 0.9% 100 ML IV SCH (21:00)
[2020-09-30] MEDS ORDERED: MELATONIN 5 MG TABLET PO ONE (21:29)
[2020-09-30] MEDS ORDERED: ASCORBIC ACID 500 MG TABLET ONE (21:29)
[2020-09-30] MEDS ORDERED: METHYLPREDNISOLONE 40 MG INJ ONE (21:30)
[2020-09-30] MEDS ORDERED: FAMOTIDINE 20 MG TAB ONE (21:30)
[2020-09-30 23:16] VITALS: BMI 17.4
[2020-10-01 04:25] LABS: Absolute Lymphocytes (CBC) 0.7 K/uL (0.7-4.9); Basophils % 0.2 % (0-1.3); Hematocrit 37.3 % (36.0-45.0); Lymphocytes % 26.2 % (15.3-44.8); MPV 8.9 fL (7.6-11.3); RBC Red Blood Cell Count 4.37 M/uL (3.86-4.86)
[2020-10-01 04:59] LABS: BUN Blood Urea Nitrogen 16 mg/dL (7-18); Bicarbonate 23 mmol/L (21-32); Ferritin 744.9 ng/mL (8-388); Glucose Level 362 mg/dL (74-106); HDL Cholesterol 23 mg/dL (40-60); LDL Cholesterol, Calculated 84 (<130); Potassium 3.9 mmol/L (3.5-5.1); Sodium Level 138 mmol/L (136-145); Thyroid Stimulating Hormone 0.631 uIU/mL (0.360-3.740)
[2020-10-01] MEDS: VITAMIN D 1000 UNIT TAB PO SCH (11:50)
[2020-10-01] MEDS: THIAMINE HCL 100 MG TABLET PO SCH ×2 (11:51→21:14)
[2020-10-01] MEDS: FAMOTIDINE 20 MG TAB PO SCH ×2 (11:51→21:14)
[2020-10-01] MEDS: ZINC SULFATE 220 MG CAP PO SCH (11:51)
[2020-10-01] MEDS: ENOXAPARIN 40 MG/0.4 ML SQ SCH (11:52)
[2020-10-01] MEDS: ASCORBIC ACID 500 MG TABLET PO SCH ×4 (11:53→21:14)
[2020-10-01] MEDS ORDERED: GLUCAGON 1 MG/VIAL IM PRN (12:41)
[2020-10-01] MEDS ORDERED: D50W 25 GM/50 ML SYRINGE IV PRN (12:41)
--- NOTE | 2020-10-01 12:49 | P.PN ---
Subjective Date of Service: 10/01/20 Primary Care Provider: none Chief Complaint: covid pneumonia Subjective: Improving (states she is feeling better, breathing is easier, eating and drinking ok, denies any chest pain) Review of Systems 10-point ROS is otherwise unremarkable Physical Examination - Vital Signs Temperature: 97.1 F Blood Pressure: 140/72 Pulse: 65 Respirations: 26 Pulse Ox (%): 98 - Physical Exam General: Alert, In no apparent distress, Oriented x3, Cooperative HEENT: Atraumatic, Normocephalic, Mucous membr. moist/pink Neck: Supple Respiratory: Diminished, Crackles/rales, Other (on 4L NC) Cardiovascular: No edema, Normal S1 S2, Other (mildly tachycardic) Capillary refill: <2 Seconds Gastrointestinal: Normal bowel sounds, Soft and benign, No tenderness Integumentary: No rashes, No breakdown, No cyanosis Neurological: Normal tone, Normal affect - Studies Laboratory Data (last 24 hrs) 09/30/20 14:28: PT 14.2 H, INR 1.23 09/30/20 14:28: WBC 6.50, Hgb 13.1, Hct 38.5, Plt Count 233 09/30/20 14:28: Sodium 133 L, Potassium 4.4, BUN 14, Creatinine 0.68, Glucose 360 H, Magnesium 2.0, Total Bilirubin 0.4, AST 43 H, ALT 39, Alkaline Phosphatase 96, Lipase 135 Assessment And Plan - Current Problems (Diagnosis) (1) Pneumonia due to COVID-19 virus Current Visit: Yes Status: Acute (2) Diabetes mellitus, type 2 Current Visit: Yes Status: Acute Qualifiers: Diabetes mellitus termination clerk insulin use: without senior living use - Plan on 4L NC today IV steroids vitamin supplementation pulmonology consulted trend inflammatory markers wean oxygen as tolerated Hgb A1c 12.6 pt has not been to a dr for several years insulin naive start lantus and titrate as needed accuchecks and SSI DVT prophylaxis-lovenox will consult respiratory and social science teacher to d/c pt with home oxygen - Code Status/Comfort Care Code Status Assessed: Yes (full) Time Spent Managing PTS Care (In Minutes): 30
--- NOTE | 2020-10-01 16:36 | P.CNS ---
Date of Consult: 10/01/20 Reason for Consult: Coronavirus pneumonia Primary Care Provider: none Chief Complaint: covid pneumonia History of Present Illness: Patient is 49 years of age presented with shortness of breath and cough admitted with coronavirus pneumonia he is on minimal oxygen Allergies No Known Allergies Allergy (Unverified 09/30/20 19:04) - Past Medical/Surgical History -: Psychosocial/ Personal History: lives with and kids - Social History Alcohol use: No CD- Drugs: No Caffeine use: No Review of Systems General: Weakness Respiratory: Shortness of Breath Physical Examination Temp Pulse Resp BP Pulse Ox 97.1 F 65 26 H 140/72 98 10/01/20 12:58 10/01/20 12:58 10/01/20 12:58 10/01/20 12:58 10/01/20 12:58 General: Alert, Oriented x3, Cooperative - Problems (1) Pneumonia due to COVID-19 virus Current Visit: Yes Status: Acute Plan: Patient is 49 years of age admitted with coronavirus pneumonia labs reviewed CRP significantly elevated CBC unremarkable patient is on 2 L nasal cannula oxygen p atient has diffuse changes on CT scan resume steroids discharge planning tomorrow
[2020-10-01] MEDS: INSULIN -REGULAR HUMAN 50 UNIT/0.5 ML ML SQ SCH ×2 (17:10→19:58)
[2020-10-01] MEDS: METHYLPREDNISOLONE 125 MG INJ IV SCH (17:10)
[2020-10-01] MEDS: HYDRALAZINE HCL 20 MG/ML VIAL IV PRN (19:57)
[2020-10-01] MEDS ORDERED: INSULIN GLARGINE 100 UNITS/ML SQ SCH ×2 (21:00)
[2020-10-01] MEDS: MELATONIN 5 MG TABLET PO SCH (21:14)
[2020-10-01 23:35] LABS: Urine Appearance CLEAR (Clear); Urine Bilirubin NEGATIVE (Negative); Urine Blood NEGATIVE (Negative); Urine Color YELLOW (Yellow); Urine Glucose 3+ (Negative); Urine Protein NEGATIVE (Negative); Urine Specific Gravity 1.025 (1.005-1.030); Urine pH 6.5 (5.0-7.0)
[2020-10-02 00:18] LABS: Urine Microscopic Reflex NO UMIC
[2020-10-02] MEDS: METHYLPREDNISOLONE 125 MG INJ IV SCH ×3 (00:39→16:50)
[2020-10-02] MEDS: INSULIN -REGULAR HUMAN 50 UNIT/0.5 ML ML SQ SCH ×5 (00:40→21:39)
[2020-10-02 07:56] LABS: Absolute Lymphocytes (CBC) 0.8 K/uL (0.7-4.9); Basophils % 0.2 % (0-1.3); Hematocrit 38.1 % (36.0-45.0); RBC Red Blood Cell Count 4.42 M/uL (3.86-4.86)
[2020-10-02 08:17] LABS: BUN Blood Urea Nitrogen 29 mg/dL (7-18); Bicarbonate 22 mmol/L (21-32); Ferritin 633.4 ng/mL (8-388); Potassium 4.1 mmol/L (3.5-5.1); Sodium Level 140 mmol/L (136-145)
[2020-10-02 08:18] LABS: Glucose Level 407 mg/dL (74-106)
[2020-10-02] MEDS: THIAMINE HCL 100 MG TABLET PO SCH ×2 (08:42→21:38)
[2020-10-02] MEDS: FAMOTIDINE 20 MG TAB PO SCH ×2 (08:42→21:38)
[2020-10-02] MEDS: ASPIRIN EC 81 MG TAB PO SCH (08:42)
[2020-10-02] MEDS: ASCORBIC ACID 500 MG TABLET PO SCH ×4 (08:42→21:40)
[2020-10-02] MEDS: VITAMIN D 1000 UNIT TAB PO SCH (08:42)
[2020-10-02] MEDS: ZINC SULFATE 220 MG CAP PO SCH (08:43)
[2020-10-02] MEDS: ENOXAPARIN 40 MG/0.4 ML SQ SCH (08:43)
[2020-10-02 10:18] LABS: Blood Morphology Comment NOT SEEN (NOT SEEN); Platelet Estimate ADEQ; White Blood Cell Scan OK (OK)
[2020-10-02] MEDS: HYDRALAZINE HCL 20 MG/ML VIAL IV PRN ×2 (12:05→21:50)
--- NOTE | 2020-10-02 14:51 | P.PN ---
Subjective Date of Service: 10/02/20 Primary Care Provider: none Chief Complaint: covid pneumonia Subjective: No new changes Review of Systems 10-point ROS is otherwise unremarkable Respiratory: SOB with Excertion Physical Examination - Vital Signs Temperature: 97.4 F Blood Pressure: 208/89 Pulse: 67 Respirations: 30 Pulse Ox (%): 93 - Physical Exam General: Alert, In no apparent distress HEENT: Atraumatic, PERRLA, EOMI Neck: Supple, JVD not distended Respiratory: Clear to auscultation bilaterally, Normal air movement Cardiovascular: Regular rate/rhythm, Normal S1 S2 Gastrointestinal: Normal bowel sounds, No tenderness Musculoskeletal: No tenderness Integumentary: No rashes Neurological: Normal speech, Normal tone, Normal affect Lymphatics: No axilla or inguinal lymphadenopathy Assessment & Plan - Problems (Diagnosis) (1) Pneumonia due to COVID-19 virus Current Visit: Yes Status: Acute Plan: improving. Will continue current treatment. See if she can go home with home o2 in a few days (2) Diabetes mellitus, type 2 Current Visit: Yes Status: Acute Plan: Patient first diagnosis of dm. Will start her on metfomin, sliding scale insulin and check an a1c. Qualifiers: Diabetes mellitus rn long term care insulin use: without [facility] use Diabetes mellitus complication status: without complication Qualified Code(s): E11.9 - Type 2 diabetes mellitus without complications Discharge Plan: Home Plan to discharge in: Greater than 2 days - Code Status/Comfort Care Code Status Assessed: No Physician Review: Patient Assessed, Agree with Above Assessment and Plan Critical Care: No Time Spent Managing Pts Care (In Minutes): 20
[2020-10-02] MEDS ORDERED: GLUCAGON 1 MG/VIAL IM PRN ×2 (14:52→14:53)
[2020-10-02] MEDS ORDERED: D50W 25 GM/50 ML SYRINGE IV PRN ×2 (14:52→14:53)
[2020-10-02] MEDS: METFORMIN HCL 500 MG TAB PO SCH (16:50)
[2020-10-02] MEDS: ACETAMINOPHEN 500 MG TAB PO PRN (16:58)
[2020-10-02] MEDS: MELATONIN 5 MG TABLET PO SCH (21:38)
[2020-10-02] MEDS: INSULIN GLARGINE 100 UNITS/ML SQ SCH (21:39)
[2020-10-03] MEDS: METHYLPREDNISOLONE 125 MG INJ IV SCH ×3 (00:48→17:31)
[2020-10-03] MEDS: BENZONATATE 100 MG CAP PO PRN (04:29)
[2020-10-03 06:21] LABS: Absolute Lymphocytes (CBC) 0.7 K/uL (0.7-4.9); Basophils % 0.2 % (0-1.3); Hematocrit 35.9 % (36.0-45.0); Lymphocytes % 13.8 % (15.3-44.8); MPV 8.9 fL (7.6-11.3); RBC Red Blood Cell Count 4.23 M/uL (3.86-4.86)
[2020-10-03 06:42] LABS: BUN Blood Urea Nitrogen 24 mg/dL (7-18); Bicarbonate 25 mmol/L (21-32); Ferritin 451.2 ng/mL (8-388); Glucose Level 350 mg/dL (74-106); Potassium 3.8 mmol/L (3.5-5.1); Sodium Level 138 mmol/L (136-145)
[2020-10-03] MEDS: ZINC SULFATE 220 MG CAP PO SCH (08:34)
[2020-10-03] MEDS: METFORMIN HCL 500 MG TAB PO SCH ×2 (08:34→17:31)
[2020-10-03] MEDS: FAMOTIDINE 20 MG TAB PO SCH ×2 (08:34→20:22)
[2020-10-03] MEDS: VITAMIN D 1000 UNIT TAB PO SCH (08:34)
[2020-10-03] MEDS: ENOXAPARIN 40 MG/0.4 ML SQ SCH (08:34)
[2020-10-03] MEDS: THIAMINE HCL 100 MG TABLET PO SCH ×2 (08:34→20:22)
[2020-10-03] MEDS: ASCORBIC ACID 500 MG TABLET PO SCH ×4 (08:34→20:20)
[2020-10-03] MEDS: INSULIN -REGULAR HUMAN 50 UNIT/0.5 ML ML SQ SCH ×4 (08:35→20:53)
[2020-10-03] MEDS: HYDRALAZINE HCL 20 MG/ML VIAL IV PRN (08:35)
[2020-10-03] MEDS: ASPIRIN EC 81 MG TAB PO SCH (10:04)
--- NOTE | 2020-10-03 12:31 | P.PN ---
Subjective Date of Service: 10/03/20 Primary Care Provider: none Chief Complaint: covid pneumonia Subjective: No new changes Review of Systems 10-point ROS is otherwise unremarkable Physical Examination - Vital Signs Temperature: 97.5 F Blood Pressure: 192/78 Pulse: 72 Respirations: 30 Pulse Ox (%): 85 - Physical Exam General: Alert, In no apparent distress HEENT: Atraumatic, PERRLA, EOMI Neck: Supple, JVD not distended Respiratory: Clear to auscultation bilaterally, Normal air movement Cardiovascular: Regular rate/rhythm, Normal S1 S2 Gastrointestinal: Normal bowel sounds, No tenderness Musculoskeletal: No tenderness Integumentary: No rashes Neurological: Normal speech, Normal tone, Normal affect Lymphatics: No axilla or inguinal lymphadenopathy Assessment & Plan - Problems (Diagnosis) (1) Pneumonia due to COVID-19 virus Current Visit: Yes Status: Acute Plan: improving. Will continue current treatment. See if she can go home with home o2 in a few days 10/03 Needed an increase in her oxygen requirements today. Will continue monitoring her (2) Diabetes mellitus, type 2 Current Visit: Yes Status: Acute Plan: Patient first diagnosis of dm. Will start her on metfomin, sliding scale insulin and check an a1c. Qualifiers: Diabetes mellitus middle or intermediate school principal insulin use: without middle or intermediate school principal use Diabetes mellitus complication status: without complication Qualified Code(s): E11.9 - Type 2 diabetes mellitus without complications Discharge Plan: Home - Code Status/Comfort Care Code Status Assessed: No Physician Review: Patient Assessed, Agree with Above Assessment and Plan Critical Care: No Time Spent Managing Pts Care (In Minutes): 20
[2020-10-03] MEDS: MELATONIN 5 MG TABLET PO SCH (20:20)
[2020-10-03] MEDS: INSULIN GLARGINE 100 UNITS/ML SQ SCH (20:53)
[2020-10-04] MEDS: METHYLPREDNISOLONE 125 MG INJ IV SCH ×3 (00:33→17:22)
[2020-10-04] MEDS: HYDRALAZINE HCL 20 MG/ML VIAL IV PRN (04:03)
[2020-10-04] MEDS: INSULIN -REGULAR HUMAN 50 UNIT/0.5 ML ML SQ SCH ×4 (07:30→20:33)
[2020-10-04] MEDS: METFORMIN HCL 500 MG TAB PO SCH ×2 (09:09→17:21)
[2020-10-04] MEDS: ENOXAPARIN 40 MG/0.4 ML SQ SCH (09:10)
[2020-10-04] MEDS: ASCORBIC ACID 500 MG TABLET PO SCH ×4 (09:10→20:32)
[2020-10-04] MEDS: ASPIRIN EC 81 MG TAB PO SCH (09:10)
[2020-10-04] MEDS: FAMOTIDINE 20 MG TAB PO SCH ×2 (09:10→20:32)
[2020-10-04] MEDS: THIAMINE HCL 100 MG TABLET PO SCH ×2 (09:10→20:32)
[2020-10-04] MEDS: ZINC SULFATE 220 MG CAP PO SCH (09:11)
[2020-10-04] MEDS: VITAMIN D 1000 UNIT TAB PO SCH (09:11)
--- NOTE | 2020-10-04 17:02 | P.PN ---
Subjective Date of Service: 10/04/20 Primary Care Provider: none Chief Complaint: covid pneumonia Subjective: Improving (Currently on 4 L per nasal cannula) Physical Examination - Vital Signs Temperature: 97.7 F Blood Pressure: 152/71 Pulse: 67 Respirations: 28 Pulse Ox (%): 94 Assessment & Plan Discharge Plan: Home Plan to discharge in: 24 Hours Physician Review Additional Text: COVID: Positive CT scan: COMPARISON: No comparisons FINDINGS: Chest Wall: No suspicious thyroid nodules or pathologic lymphadenopathy. Lungs: Moderate to severe bilateral ground-glass and consolidative airspace disease. Pleura: No significant effusions or pneumothorax. Mediastinum/oliver: No pathologic lymphadenopathy. Pulmonary arteries/Aorta: No filling defect identified. No aortic aneurysm. Heart: No significant pericardial effusion. Normal heart size. Upper abdomen: No acute abnormality. Bones: No acute abnormality. IMPRESSION: Negative for pulmonary embolism. Moderate to severe bilateral airspace disease consistent with multifocal pneumonia, presumably Covid-19. Physical Exam: GENERAL: The patient is a well-developed, well-nourished, in no apparent distress. Alert and oriented x3. VITAL SIGNS: Reviewed HEENT: Head is normocephalic and atraumatic. Extraocular muscles are intact. Pupils are equal, round, and reactive to light and accommodation. Nares appeared normal. Mouth is well hydrated and without lesions. Mucous membranes are moist. NECK: Supple. No carotid bruits. No lymphadenopathy or thyromegaly. LUNGS: Clear to auscultation. No crackles or wheezes are heard. HEART: Regular rate and rhythm, no appreciable gallops, rubs, murmurs or extra heart sounds ABDOMEN: Soft, nontender, and nondistended. Positive bowel sounds. No hepatosplenomegaly was noted. EXTREMITIES: Without any cyanosis, clubbing, rash, lesions or peripheral edema. NEUROLOGIC: The patient is oriented to person, place and time. Strength and sen sation are grossly intact. Face is symmetric. SKIN: Normal color, turgor and temperature. No ulcerations or rashes noted. Impression: Dyspnea secondary to bilateral Covid pneumonia with hypoxia New diabetes mellitus type 2 Plan: Continue IV Solu-Medrol, supplementation. Patient on DVT prophylaxisLovenox. Continue to wean off oxygen to maintain sats above 93%. Hemoglobin A1c greater than 10. Patient currently on Lantus and Metformin. This will be continued at discharge. Anticipate improvement over the next 24 hours. Possible discharge as early as tomorrow. We will continue to reassess. Encourage incentive spirometer, proning. Code Status: Full Code DVT prophylaxis: Lovenox Advanced Care Planning-30 minutes: Home at discharge Time Spent Managing Pts Care (In Minutes): 55
[2020-10-04] MEDS: MELATONIN 5 MG TABLET PO SCH (20:32)
[2020-10-04] MEDS: INSULIN GLARGINE 100 UNITS/ML SQ SCH (20:32)
[2020-10-05] MEDS: METHYLPREDNISOLONE 125 MG INJ IV SCH ×3 (00:04→20:55)
[2020-10-05 05:54] LABS: Absolute Lymphocytes (CBC) 0.7 K/uL (0.7-4.9); Basophils % 0.2 % (0-1.3); Hematocrit 34.7 % (36.0-45.0); Lymphocytes % 14.3 % (15.3-44.8); MPV 8.5 fL (7.6-11.3); RBC Red Blood Cell Count 4.11 M/uL (3.86-4.86)
[2020-10-05 06:19] LABS: ALT/SGPT 22 U/L (12-78); AST/SGOT 15 U/L (15-37); Albumin 2.4 g/dL (3.4-5.0); Alkaline Phosphatase 73 U/L (45-117); BUN Blood Urea Nitrogen 20 mg/dL (7-18); Bicarbonate 25 mmol/L (21-32); Bilirubin Total 0.3 mg/dL (0.2-1.0); Ferritin 263.8 ng/mL (8-388); Glucose Level 332 mg/dL (74-106); Potassium 3.9 mmol/L (3.5-5.1); Protein, Total 6.5 g/dL (6.4-8.2); Sodium Level 137 mmol/L (136-145)
--- NOTE | 2020-10-05 06:43 | P.PN ---
Subjective Date of Service: 10/05/20 Primary Care Provider: none Chief Complaint: covid pneumonia Subjective: Improving (Patient currently on 5 L per nasal cannula) Physical Examination - Vital Signs Temperature: 97.3 F Blood Pressure: 156/71 Pulse: 67 Respirations: 20 Pulse Ox (%): 97 Assessment & Plan Discharge Plan: Home Plan to discharge in: 48 Hours Physician Review Additional Text: COVID: Positive CT scan: COMPARISON: No comparisons FINDINGS: Chest Wall: No suspicious thyroid nodules or pathologic lymphadenopathy. Lungs: Moderate to severe bilateral ground-glass and consolidative airspace disease. Pleura: No significant effusions or pneumothorax. Mediastinum/oliver: No pathologic lymphadenopathy. Pulmonary arteries/Aorta: No filling defect identified. No aortic aneurysm. Heart: No significant pericardial effusion. Normal heart size. Upper abdomen: No acute abnormality. Bones: No acute abnormality. IMPRESSION: Negative for pulmonary embolism. Moderate to severe bilateral airspace disease consistent with multifocal pneumonia, presumably Covid-19. CXR 10/05/2020: COMPARISON: September 30, 2020 FINDINGS: Mild worsening in extensive bilateral pulmonary opacities. The heart is mildly enlarged IMPRESSION: Mild worsening in the bilateral pneumonia Physical Exam: GENERAL: The patient is a well-developed, well-nourished, in no apparent distress. Alert and oriented x3. VITAL SIGNS: Reviewed HEENT: Neck supple LUNGS: Overall improved. Currently on 5 L HEART: Regular rate and rhythm, no appreciable gallops, rubs, murmurs or extra heart sounds ABDOMEN: Soft, nontender, and nondistended. Positive bowel sounds. No hepatosplenomegaly was noted. EXTREMITIES: Without any cyanosis, clubbing, rash, lesions or peripheral edema. NEUROLOGIC: The patient is oriented to person, place and time. Strength and sensation are grossly intact. Face is symmetric. SKIN: Normal color, turgor and temperature. No ulcerations or rashes noted. Impression: Dyspnea secondary to bilateral Covid pneumonia with hypoxia New diabetes mellitus type 2 Plan: Patient shows improvement. Down to 5 L per nasal cannula. Continue IV Solu- Medrol and supplementation. Patient on DVT prophylaxisLovenox. Continue to wean off oxygen to maintain sats above 93%. Increase Metformin today. Continue Lantus. Encourage proning, incentive spirometer. We will continue to monitor the patient closely. Monitor labs including CRP and ferritin. Anticipate possible improvement within the next 24 to 48 hours Code Status: Full Code DVT prophylaxis: Lovenox Advanced Care Planning-30 minutes: Home at discharge Time Spent Managing Pts Care (In Minutes): 55
--- NOTE | 2020-10-05 07:42 | RAD REPORT ---
EXAM DESCRIPTION: Zoe Single View10/05/2020 7:10 am CLINICAL HISTORY: Shortness of breath COMPARISON: September 30, 2020 FINDINGS: Mild worsening in extensive bilateral pulmonary opacities. The heart is mildly enlarged IMPRESSION: Mild worsening in the bilateral pneumonia
[2020-10-05] MEDS: VITAMIN D 1000 UNIT TAB PO SCH (08:39)
[2020-10-05] MEDS: METFORMIN HCL 500 MG TAB PO SCH ×2 (08:39→16:21)
[2020-10-05] MEDS: ASCORBIC ACID 500 MG TABLET PO SCH ×4 (08:39→20:54)
[2020-10-05] MEDS: THIAMINE HCL 100 MG TABLET PO SCH ×2 (08:39→20:54)
[2020-10-05] MEDS: FAMOTIDINE 20 MG TAB PO SCH ×2 (08:39→20:54)
[2020-10-05] MEDS: ASPIRIN EC 81 MG TAB PO SCH (08:40)
[2020-10-05] MEDS: INSULIN -REGULAR HUMAN 50 UNIT/0.5 ML ML SQ SCH ×4 (08:40→21:05)
[2020-10-05] MEDS: ENOXAPARIN 40 MG/0.4 ML SQ SCH (08:41)
[2020-10-05] MEDS: ZINC SULFATE 220 MG CAP PO SCH (08:42)
[2020-10-05] MEDS ORDERED: POTASSIUM CL SA 10 MEQ TAB PO ONE (15:19)
[2020-10-05] MEDS: BENZONATATE 100 MG CAP PO PRN (20:54)
[2020-10-05] MEDS: MELATONIN 5 MG TABLET PO SCH (20:54)
[2020-10-05] MEDS: ACETAMINOPHEN 500 MG TAB PO PRN (20:56)
[2020-10-05] MEDS: INSULIN GLARGINE 100 UNITS/ML SQ SCH (21:06)
[2020-10-06 05:07] LABS: Absolute Lymphocytes (CBC) 0.8 K/uL (0.7-4.9); Basophils % 0.5 % (0-1.3); Hematocrit 36.2 % (36.0-45.0); MPV 8.7 fL (7.6-11.3); RBC Red Blood Cell Count 4.28 M/uL (3.86-4.86)
[2020-10-06 05:51] LABS: Blood Morphology Comment NOT SEEN (NOT SEEN); Platelet Estimate ADEQ
--- NOTE | 2020-10-06 06:29 | P.DS ---
Admission Date: 09/30/20 Discharge Date: 10/06/20 Primary Care Provider: none Disposition: ROUTINE DISCHARGE Discharge Condition: GOOD Reason for Admission: covid pneumonia Consultations: Pulmonary-Dr. Kennedy Procedures: COVID: Positive CT scan: COMPARISON: No comparisons FINDINGS: Chest Wall: No suspicious thyroid nodules or pathologic lymphadenopathy. Lungs: Moderate to severe bilateral ground-glass and consolidative airspace disease. Pleura: No significant effusions or pneumothorax. Mediastinum/oliver: No pathologic lymphadenopathy. Pulmonary arteries/Aorta: No filling defect identified. No aortic aneurysm. Heart: No significant pericardial effusion. Normal heart size. Upper abdomen: No acute abnormality. Bones: No acute abnormality. IMPRESSION: Negative for pulmonary embolism. Moderate to severe bilateral airspace disease consistent with multifocal pneumonia, presumably Covid-19. CXR 10/05/2020: COMPARISON: September 30, 2020 FINDINGS: Mild worsening in extensive bilateral pulmonary opacities. The heart is mildly enlarged IMPRESSION: Mild worsening in the bilateral pneumonia Medical problem list: Dyspnea secondary to bilateral Covid pneumonia with hypoxia New diabetes mellitus type 2 Brief History of Present Illness: 49-year-old female presented with shortness of breath and cough for 3 days. She was found to have hypoxia with Covid pneumonia. Patient was admitted for treatment. Hospital Course: Patient presented with dyspnea secondary to bilateral COVID pneumonia with hypoxia. Patient was admitted for treatment. During the course of her stay patient received IV steroids and supplementation. Her condition has improved. Currently at discharge she is without significant shortness of breath. Currently on 3.5 L per nasal cannula. At discharge she will continue with home oxygen to maintain sats above 93%. Currently on 3.5 L per nasal cannula. At discharge she will also continue with prednisone 20 mg 1 pill twice daily for 7 days then 1 pill once daily for 7 days. The patient will be provided aspirin 81 mg daily and Tessalon Perles 100 mg 3 times a day as needed for cough. The patient will continue with vitamin supplementation including vitamin C 500 mg 1 pill 3 times a day, vitamin D 2000 units daily, thiamine 100 mg 1 pill twice daily, zinc 220 mg daily, and Pepcid 20 mg 1 pill twice daily. Patient will continue with COVID-19 guidelines for isolation. Recommend to continue incentive spirometer, proning and lying on her side. Patient will continue with facemask use, handwashing and social distancing. The patient will need to follow-up with pulmonology in 1 week to follow-up his hospitalization. Pulmonology will help wean her off oxygen. Patient will need to establish care locally with a PCP to follow-up this hospitalization. Patient found to have hyperglycemia secondary to new diagnosis of diabetes mellitus type 2. Patient was started on insulin and oral medication. At discharge she will continue with Metformin 1000 mg 1 pill twice daily and Lantus 10 units subcu daily. Recommend to monitor her blood sugars at least twice daily. Recommend to maintain blood sugars less than 140 fasting and less than 200 after meals. If blood sugars remain above 200 she may increase Lantus by 1 to 2 units for better control. Recommend to follow-up with PCP in 1 week to follow-up to the hospitalization and continue her care for diabetes. Recommend to recheck hemoglobin A1c every 3 months to monitor her progress. Education on diabetes will be provided. Vital Signs/Physical Exam: Temp Pulse Resp BP Pulse Ox 97.0 F 57 18 156/71 H 90 L 10/06/20 04:00 10/06/20 04:00 10/06/20 04:00 10/06/20 04:00 10/06/20 04:00 General: Alert, In no apparent distress, Oriented x3, Cooperative HEENT: Atraumatic Neck: Supple Respiratory: Clear to auscultation bilaterally, Other (Currently on 3.5 L per nasal cannula) Cardiovascular: Normal pulses, Regular rate/rhythm Gastrointestinal: Normal bowel sounds Musculoskeletal: No erythema, No tenderness, No warmth Integumentary: No tenderness/swelling, No erythema, No warmth, No cyanosis Neurological: Normal speech, Normal strength at 5/5 x4 extr, Normal tone Laboratory Data at Discharge: WBC 6.40 K/uL (4.3-10.9) D 10/06/20 04:55 Hgb 12.3 g/dL (12.0-15.0) 10/06/20 04:55 Hct 36.2 % (36.0-45.0) 10/06/20 04:55 Plt Count 293 K/uL (152-406) 10/06/20 04:55 PT 14.2 SECONDS (9.5-12.5) H 09/30/20 14:28 INR 1.23 09/30/20 14:28 Sodium 137 mmol/L (136-145) 10/05/20 05:34 Potassium 3.9 mmol/L (3.5-5.1) 10/05/20 05:34 BUN 20 mg/dL (7-18) H 10/05/20 05:34 Creatinine 0.44 mg/dL (0.55-1.3) L 10/05/20 05:34 Glucose 332 mg/dL (74-106) H 10/05/20 05:34 Magnesium 2.0 mg/dL (1.8-2.4) 10/05/20 05:34 Total Bilirubin 0.3 mg/dL (0.2-1.0) 10/05/20 05:34 AST 15 U/L (15-37) 10/05/20 05:34 ALT 22 U/L (12-78) 10/05/20 05:34 Alkaline Phosphatase 73 U/L (45-117) 10/05/20 05:34 Triglycerides 176 mg/dL (<150) H 10/01/20 04:00 Cholesterol 142 mg/dL (<200) 10/01/20 04:00 HDL Cholesterol 23 mg/dL (40-60) L 10/01/20 04:00 Cholesterol/HDL Ratio 6.17 10/01/20 04:00 Lipase 135 U/L (73-393) 09/30/20 14:28 Home Medications: Ascorbic Acid [Vitamin C*] 500 mg PO TID #90 tablet 10/06/20 Aspirin [Aspirin EC 81 MG] 81 mg PO DAILY #30 tablet. 10/06/20 Benzonatate [Tessalon Perle*] 100 mg PO TID PRN #15 cap 10/06/20 Cholecalciferol (Vitamin D3) [Vitamin D 1000 Iu Tab*] 2,000 unit PO DAILY #60 tab 10/06/20 Famotidine [Pepcid*] 20 mg PO BID #60 tab 10/06/20 Insulin Glargine Human [Lantus*] 10 units SQ BEDTIME #1 vial 10/06/20 Metformin HCl 1,000 mg PO BID #60 tablet 10/06/20 Thiamine HCl [Vitamin B-1*] 100 mg PO BID #60 tablet 10/06/20 Zinc Sulfate [Zinc Sulfate*] 220 mg PO DAILY #30 cap 10/06/20 predniSONE [Prednisone] 20 mg PO SEECOM #21 tablet 10/06/20 New Medications: Aspirin [Aspirin EC 81 MG] 81 mg PO DAILY #30 tablet. Insulin Glargine Human [Lantus*] 10 units SQ BEDTIME #1 vial Metformin HCl 1,000 mg PO BID #60 tablet Famotidine [Pepcid*] 20 mg PO BID #60 tab predniSONE [Prednisone] 20 mg PO SEECOM #21 tablet Benzonatate [Tessalon Perle*] 100 mg PO TID PRN #15 cap PRN Reason: Cough Thiamine HCl [Vitamin B-1*] 100 mg PO BID #60 tablet Ascorbic Acid [Vitamin C*] 500 mg PO TID #90 tablet Cholecalciferol (Vitamin D3) [Vitamin D 1000 Iu Tab*] 2,000 unit PO DAILY #60 tab Zinc Sulfate [Zinc Sulfate*] 220 mg PO DAILY #30 cap Physician Discharge Instructions: Patient presented with dyspnea secondary to bilateral COVID pneumonia with hypoxia. Patient was admitted for treatment. During the course of her stay patient received IV steroids and supplementation. Her condition has improved. Currently at discharge she is without significant shortness of breath. Currently on 3.5 L per nasal cannula. At discharge she will continue with home oxygen to maintain sats above 93%. Currently on 3.5 L per nasal cannula. At discharge she will also continue with prednisone 20 mg 1 pill twice daily for 7 days then 1 pill once daily for 7 days. The patient will be provided aspirin 81 mg daily and Tessalon Perles 100 mg 3 times a day as needed for cough. The patient will continue with vitamin supplementation including vitamin C 500 mg 1 pill 3 times a day, vitamin D 2000 units daily, thiamine 100 mg 1 pill twice daily, zinc 220 mg daily, and Pepcid 20 mg 1 pill twice daily. Patient will continue with COVID-19 guidelines for isolation. Recommend to continue incenti ve spirometer, proning and lying on her side. Patient will continue with facemask use, handwashing and social distancing. The patient will need to follow-up with pulmonology in 1 week to follow-up his hospitalization. Pulmonology will help wean her off oxygen. Patient will need to establish care locally with a PCP to follow-up this hospitalization. Patient found to have hyperglycemia secondary to new diagnosis of diabetes mellitus type 2. Patient was started on insulin and oral medication. At discharge she will continue with Metformin 1000 mg 1 pill twice daily and Lantus 10 units subcu daily. Recommend to monitor her blood sugars at least twice daily. Recommend to maintain blood sugars less than 140 fasting and less than 200 after meals. If blood sugars remain above 200 she may increase Lantus by 1 to 2 units for better control. Recommend to follow-up with PCP in 1 week to follow-up to the hospitalization and continue her care for diabetes. Recommend to recheck hemoglobin A1c every 3 months to monitor her progress. Education on diabetes will be provided. Diet: ADA Activity: Ad martha Followup: Rylie Mares FNP [facility] [[employer] HE[employer] PROFESSIONAL] - 1-2 Weeks Time spent managing pt's care (in minutes): 55
[2020-10-06 06:30] LABS: BUN Blood Urea Nitrogen 19 mg/dL (7-18); Bicarbonate 23 mmol/L (21-32); Glucose Level 314 mg/dL (74-106); Sodium Level 135 mmol/L (136-145)
[2020-10-06 06:31] LABS: ALT/SGPT 31 U/L (12-78); Albumin 2.4 g/dL (3.4-5.0); Alkaline Phosphatase 74 U/L (45-117); Bilirubin Total 0.4 mg/dL (0.2-1.0); Ferritin 275.9 ng/mL (8-388); Magnesium 1.9 mg/dL (1.8-2.4); Protein, Total 6.5 g/dL (6.4-8.2)
[2020-10-06 06:42] LABS: AST/SGOT 24 U/L (15-37)
[2020-10-06] MEDS: FAMOTIDINE 20 MG TAB PO SCH ×2 (08:40→20:03)
[2020-10-06] MEDS: ASPIRIN EC 81 MG TAB PO SCH (08:41)
[2020-10-06] MEDS: METFORMIN HCL 500 MG TAB PO SCH ×2 (08:41→16:52)
[2020-10-06] MEDS: ZINC SULFATE 220 MG CAP PO SCH (08:42)
[2020-10-06] MEDS: ASCORBIC ACID 500 MG TABLET PO SCH ×4 (08:42→20:04)
[2020-10-06] MEDS: VITAMIN D 1000 UNIT TAB PO SCH (08:43)
[2020-10-06] MEDS: METHYLPREDNISOLONE 125 MG INJ IV SCH ×2 (08:43→20:04)
[2020-10-06] MEDS: ENOXAPARIN 40 MG/0.4 ML SQ SCH (08:43)
[2020-10-06] MEDS: INSULIN -REGULAR HUMAN 50 UNIT/0.5 ML ML SQ SCH ×4 (08:44→20:04)
[2020-10-06] MEDS: THIAMINE HCL 100 MG TABLET PO SCH ×2 (08:45→20:04)
[2020-10-06] MEDS: MELATONIN 5 MG TABLET PO SCH (20:03)
[2020-10-06] MEDS: INSULIN GLARGINE 100 UNITS/ML SQ SCH (20:05)
[2020-10-07 05:35] LABS: Absolute Lymphocytes (CBC) 0.8 K/uL (0.7-4.9); Basophils % 0.3 % (0-1.3); Hematocrit 38.3 % (36.0-45.0); Lymphocytes % 14.1 % (15.3-44.8); RBC Red Blood Cell Count 4.49 M/uL (3.86-4.86)
[2020-10-07 05:43] LABS: ALT/SGPT 36 U/L (12-78); AST/SGOT 18 U/L (15-37); Albumin 2.5 g/dL (3.4-5.0); Alkaline Phosphatase 72 U/L (45-117); BUN Blood Urea Nitrogen 16 mg/dL (7-18); Bicarbonate 24 mmol/L (21-32); Bilirubin Total 0.4 mg/dL (0.2-1.0); Ferritin 272.1 ng/mL (8-388); Glucose Level 359 mg/dL (74-106); Magnesium 1.9 mg/dL (1.8-2.4); Protein, Total 6.7 g/dL (6.4-8.2); Sodium Level 135 mmol/L (136-145)
--- NOTE | 2020-10-07 06:11 | P.DS ---
Admission Date: 09/30/20 Discharge Date: 10/07/20 Primary Care Provider: none Disposition: ROUTINE DISCHARGE Discharge Condition: GOOD Reason for Admission: covid pneumonia Consultations: Pulmonary-Dr. Kennedy Procedures: COVID: Positive CT scan: COMPARISON: No comparisons FINDINGS: Chest Wall: No suspicious thyroid nodules or pathologic lymphadenopathy. Lungs: Moderate to severe bilateral ground-glass and consolidative airspace disease. Pleura: No significant effusions or pneumothorax. Mediastinum/oliver: No pathologic lymphadenopathy. Pulmonary arteries/Aorta: No filling defect identified. No aortic aneurysm. Heart: No significant pericardial effusion. Normal heart size. Upper abdomen: No acute abnormality. Bones: No acute abnormality. IMPRESSION: Negative for pulmonary embolism. Moderate to severe bilateral airspace disease consistent with multifocal pneumonia, presumably Covid-19. CXR 10/05/2020: COMPARISON: September 30, 2020 FINDINGS: Mild worsening in extensive bilateral pulmonary opacities. The heart is mildly enlarged IMPRESSION: Mild worsening in the bilateral pneumonia Medical problem list: Dyspnea secondary to bilateral Covid pneumonia with hypoxia New diabetes mellitus type 2 Brief History of Present Illness: 49-year-old female presented with shortness of breath and cough for 3 days. She was found to have hypoxia with Covid pneumonia. Patient was admitted for treatment. Hospital Course: Patient presented with dyspnea secondary to bilateral COVID pneumonia with hypoxia. Patient was admitted for treatment. During the course of her stay patient received IV steroids and supplementation. Her condition has improved. Currently at discharge she is without significant shortness of breath. Currently on 3.5 L per nasal cannula. At discharge she will continue with home oxygen to maintain sats above 93%. Currently on 3.5 L per nasal cannula. At discharge she will also continue with prednisone 20 mg 1 pill twice daily for 7 days then 1 pill once daily for 7 days. The patient will be provided aspirin 81 mg daily and Tessalon Perles 100 mg 3 times a day as needed for cough. The patient will continue with vitamin supplementation including vitamin C 500 mg 1 pill 3 times a day, vitamin D 2000 units daily, thiamine 100 mg 1 pill twice daily, zinc 220 mg daily, and Pepcid 20 mg 1 pill twice daily. Patient will continue with COVID-19 guidelines for isolation. Recommend to continue incentive spirometer, proning and lying on her side. Patient will continue with facemask use, handwashing and social distancing. The patient will need to follow-up with pulmonology in 1 week to follow-up his hospitalization. Pulmonology will help wean her off oxygen. Patient will need to establish care locally with a PCP to follow-up this hospitalization. Discharge was held 1 day as oxygen cannot be arranged at home. Will make sure this is arranged today for discharge. Patient found to have hyperglycemia secondary to new diagnosis of diabetes mellitus type 2. Patient was started on insulin and oral medication. At discharge she will continue with Metformin 1000 mg 1 pill twice daily and Lantus 10 units subcu daily. Recommend to monitor her blood sugars at least twice daily. Recommend to maintain blood sugars less than 140 fasting and less than 200 after meals. If blood sugars remain above 200 she may increase Lantus by 1 to 2 units for better control. Recommend to follow-up with PCP in 1 week to follow-up to the hospitalization and continue her care for diabetes. Recommend to recheck hemoglobin A1c every 3 months to monitor her progress. Education on diabetes will be provided. Vital Signs/Physical Exam: Temp Pulse Resp BP Pulse Ox 97.9 F 68 19 142/82 H 95 10/07/20 04:00 10/07/20 04:00 10/07/20 04:00 10/07/20 04:00 10/07/20 04:00 General: Alert, In no apparent distress, Oriented x3, Cooperative HEENT: Atraumatic Neck: Supple Respiratory: Clear to auscultation bilaterally Cardiovascular: Normal pulses, Regular rate/rhythm Gastrointestinal: Normal bowel sounds, No tenderness, No masses, No rebound, No guarding Musculoskeletal: No erythema, No tenderness, No warmth Integumentary: No tenderness/swelling Neurological: Normal speech, Normal strength at 5/5 x4 extr, Normal tone, Normal affect Laboratory Data at Discharge: WBC 5.50 K/uL (4.3-10.9) D 10/07/20 04:56 Hgb 13.3 g/dL (12.0-15.0) 10/07/20 04:56 Hct 38.3 % (36.0-45.0) 10/07/20 04:56 Plt Count 310 K/uL (152-406) 10/07/20 04:56 PT 14.2 SECONDS (9.5-12.5) H 09/30/20 14:28 INR 1.23 09/30/20 14:28 Sodium 135 mmol/L (136-145) L 10/07/20 04:56 Potassium 4.0 mmol/L (3.5-5.1) 10/07/20 04:56 BUN 16 mg/dL (7-18) 10/07/20 04:56 Creatinine 0.43 mg/dL (0.55-1.3) L 10/07/20 04:56 Glucose 359 mg/dL (74-106) H 10/07/20 04:56 Magnesium 1.9 mg/dL (1.8-2.4) 10/07/20 04:56 Total Bilirubin 0.4 mg/dL (0.2-1.0) 10/07/20 04:56 AST 18 U/L (15-37) 10/07/20 04:56 ALT 36 U/L (12-78) 10/07/20 04:56 Alkaline Phosphatase 72 U/L (45-117) 10/07/20 04:56 Triglycerides 176 mg/dL (<150) H 10/01/20 04:00 Cholesterol 142 mg/dL (<200) 10/01/20 04:00 HDL Cholesterol 23 mg/dL (40-60) L 10/01/20 04:00 Cholesterol/HDL Ratio 6.17 10/01/20 04:00 Lipase 135 U/L (73-393) 09/30/20 14:28 Home Medications: Ascorbic Acid [Vitamin C*] 500 mg PO TID #90 tablet 10/06/20 Aspirin [Aspirin EC 81 MG] 81 mg PO DAILY #30 tablet 10/06/20 Benzonatate [Tessalon Perle*] 100 mg PO TID PRN #15 cap 10/06/20 Cholecalciferol (Vitamin D3) [Vitamin D 1000 Iu Tab*] 2,000 unit PO DAILY #60 tab 10/06/20 Famotidine [Pepcid*] 20 mg PO BID #60 tab 10/06/20 Insulin Glargine Human [Lantus*] 10 units SQ BEDTIME #1 vial 10/06/20 Metformin HCl 1,000 mg PO BID #60 tablet 10/06/20 Thiamine HCl [Vitamin B-1*] 100 mg PO BID #60 tablet 10/06/20 Zinc Sulfate [Zinc Sulfate*] 220 mg PO DAILY #30 cap 10/06/20 predniSONE [Prednisone] 20 mg PO SEECOM #21 tablet 10/06/20 New Medications: Aspirin [Aspirin EC 81 MG] 81 mg PO DAILY #30 tablet. Insulin Glargine Human [Lantus*] 10 units SQ BEDTIME #1 vial Metformin HCl 1,000 mg PO BID #60 tablet Famotidine [Pepcid*] 20 mg PO BID #60 tab predniSONE [Prednisone] 20 mg PO SEECOM #21 tablet Benzonatate [Tessalon Perle*] 100 mg PO TID PRN #15 cap PRN Reason: Cough Thiamine HCl [Vitamin B-1*] 100 mg PO BID #60 tablet Ascorbic Acid [Vitamin C*] 500 mg PO TID #90 tablet Cholecalciferol (Vitamin D3) [Vitamin D 1000 Iu Tab*] 2,000 unit PO DAILY #60 tab Zinc Sulfate [Zinc Sulfate*] 220 mg PO DAILY #30 cap Physician Discharge Instructions: PROBLEM: COVID Pneumonia GOAL: Clear understanding of disease process E-scripts sent to [facility] in [place]. INSTRUCTIONS: Patient presented with dyspnea secondary to bilateral COVID pneumonia with hypoxia. Patient was admitted for treatment. During the course of her stay patient received IV steroids and supplementation. Her condition has improved. Currently at discharge she is without significant shortness of breath. Currentl y on 3.5 L per nasal cannula. At discharge she will continue with home oxygen to maintain sats above 93%. Currently on 3.5 L per nasal cannula. At discharge she will also continue with prednisone 20 mg 1 pill twice daily for 7 days then 1 pill once daily for 7 days. The patient will be provided aspirin 81 mg daily and Tessalon Perles 100 mg 3 times a day as needed for cough. The patient will continue with vitamin supplementation including vitamin C 500 mg 1 pill 3 times a day, vitamin D 2000 units daily, thiamine 100 mg 1 pill twice daily, zinc 220 mg daily, and Pepcid 20 mg 1 pill twice daily. Patient will continue with COVID-19 guidelines for isolation. Recommend to continue incentive spirometer, proning and lying on her side. Patient will continue with facemask use, handwashing and social distancing. The patient will need to follow-up with pulmonology in 1 week to follow-up his hospitalization. Pulmonology will help wean her off oxygen. Patient will need to establish care locally with a PCP to follow-up this hospitalization. Patient found to have hyperglycemia secondary to new diagnosis of diabetes mellitus type 2. Patient was started on insulin and oral medication. At discharge she will continue with Metformin 1000 mg 1 pill twice daily and Lantus 10 units subcu daily. Recommend to monitor her blood sugars at least twice daily. Recommend to maintain blood sugars less than 140 fasting and less than 200 after meals. If blood sugars remain above 200 she may increase Lantus by 1 to 2 units for better control. Recommend to follow-up with PCP in 1 week to fo llow-up to the hospitalization and continue her care for diabetes. Recommend to recheck hemoglobin A1c every 3 months to monitor her progress. Education on diabetes will be provided. Diet: 2000 calorie diabetic diet Activity: As tolerated DME DME: Home oxygen Date Ordered: [facility] Patient Name of Company: 10/05/20 IMMUNIZATION Influenza Vaccine Indicated: Influenza Vaccine Given: Date Given: Pneumonia Vaccine Indicated: Yes Pneumonia Vaccine Given: Date Given: Diet: ADA Activity: Ad martha Followup: Richard Kennedy MD [ACTIVE - CAN ADMIT] - 1 Week (Follow up in office in 1 week. Call to schedule an appointment.) Rylie Mares FNP [facility] [[employer] HEALTH PROFESSIONAL] - 1-2 Weeks (Follow up in office in 1-2 weeks. Call to schedule an appointment.) Time spent managing pt's care (in minutes): 55
[2020-10-07] MEDS: ENOXAPARIN 40 MG/0.4 ML SQ SCH (09:00)
[2020-10-07] MEDS: INSULIN -REGULAR HUMAN 50 UNIT/0.5 ML ML SQ SCH ×3 (09:49→17:21)
[2020-10-07] MEDS: THIAMINE HCL 100 MG TABLET PO SCH (09:50)
[2020-10-07] MEDS: ZINC SULFATE 220 MG CAP PO SCH (09:50)
[2020-10-07] MEDS: VITAMIN D 1000 UNIT TAB PO SCH (09:50)
[2020-10-07] MEDS: FAMOTIDINE 20 MG TAB PO SCH (09:50)
[2020-10-07] MEDS: ASCORBIC ACID 500 MG TABLET PO SCH ×3 (09:50→17:21)
[2020-10-07] MEDS: ASPIRIN EC 81 MG TAB PO SCH (09:50)
[2020-10-07] MEDS: METFORMIN HCL 500 MG TAB PO SCH ×2 (09:51→17:21)
[2020-10-07] MEDS: METHYLPREDNISOLONE 125 MG INJ IV SCH (09:51)
[2020-10-07 12:30] VITALS: O2SAT 92
[2020-10-07 16:35] VITALS: BP 156/76; TEMP 96.9
== END 2020-10-07 17:40 | disposition home or self-care (01) | DRG 177 ==
LOC: ER 13:19 → ERHOLD 17:06 → 4TH 10-01 07:40
PROVIDERS: ADMIT Internal Medicine; ATTEND Internal Medicine
DX: U07.1 COVID-19 (principal); J12.82 Pneumonia due to coronavirus disease 2019; R09.02 Hypoxemia; E11.65 Type 2 diabetes mellitus with hyperglycemia
CPT/HCPCS: 36415; 71045; 71275; 80048; 80053; 80061; 80076; 81003; 82728; 82947; 83036; 83690; 83735; 83880; 84145; 84439; 84443; 84484; 85025; 85379; 85610; 86140; 87040; 93005; 94760; 96365; 96372; 96375; 99285; J0360; J0456; J0696; J1650; J1815; J2920; J2930; J7030; J7050; Q9967; U0003